=== PATIENT | female | born 1955 | race Caucasian/White ===

== ENCOUNTER 2017-08-10 10:54 | Day surgery (SDC) | payer MEDICARE, OTHER ==
[2017-08-09 10:29] LABS: APPEARANCE,URINE CLEAR; BILIRUBIN,URINE NEGATIVE (NEGATIVE); GLUCOSE, URINE NEGATIVE (NEGATIVE); KETONES,URINE NEGATIVE (NEGATIVE); LEUKOCYTE ESTERASE,URINE NEGATIVE (NEGATIVE); NITRITE,URINE NEGATIVE (NEGATIVE); PROTEIN,URINE NEGATIVE (NEGATIVE); URINE SPECIFIC GRAVITY 1.005; UROBILINOGEN,URINE NEGATIVE mg/dL (<2.0)
[2017-08-09 11:15] LABS: HEMATOCRIT 38.3 % (36.0-47.0); HEMOGLOBIN 12.7 g/dL (12.0-15.5); HGB HCT DIFFERENCE -0.2; MEAN CORPUSCULAR HEMOGLOBIN 27.2 pg (27.0-33.4); MEAN CORPUSCULAR HGB CONC 33.2 g/dL (32.0-36.0); MEAN CORPUSCULAR VOLUME 82 fl (80-97); RED BLOOD COUNT 4.67 10^6/uL (3.72-5.28); RED CELL DISTRIBUTION WIDTH 14.4 % (11.5-14.0); WHITE BLOOD COUNT 4.1 10^3/uL (4.0-10.5)
[2017-08-09 11:26] LABS: PROTHROMBIN TIME 11.9 SEC (11.4-15.4)
[2017-08-09 11:50] LABS: ANION GAP 15 (5-19); BLOOD UREA NITROGEN 16 mg/dL (7-20); CALCIUM 10.1 mg/dL (8.4-10.2); CARBON DIOXIDE 25 mmol/L (22-30); CHLORIDE 105 mmol/L (98-107); CREATININE RESULT 0.88 mg/dL (0.52-1.25); GLUCOSE 84 mg/dL (75-110); POTASSIUM 4.2 mmol/L (3.6-5.0); SODIUM 145.1 mmol/L (137-145)
--- NOTE | 2017-08-09 18:33 | EKG REPORT ---
SEVERITY:- NORMAL ECG - SINUS RHYTHM : Confirmed by: Lisa Grigsby 09-Aug-2017 18:32:29
[~2017-08-10 10:54] MED LIST: CEFAZOLIN SODIUM 1 GM in DEXTROSE 5%-WATER 50 ML IV PRN; LACTATED RINGERS 1000 ML IV PRN; LIDOCAINE 0.5% INJ-PF (5 MG/ML) 50 ML SDV SUBCUT PRN; RINGERS SOLUTION,LACTATED 1,000 ML IV PRN
[2017-08-10] MEDS ORDERED: LIDOCAINE 1% INJ-PF (10 MG/ML) 30 ML SDV ONE (11:07)
[2017-08-10] MEDS ORDERED: BUPIVACAINE HCL 0.25% /EPINEPHRINE INJ/PF 30 ML SDV ONE (11:08)
[2017-08-10] MEDS ORDERED: SODIUM BICARBONATE 8.4% INJ 50 MEQ/50 ML DISP.SYRIN ONE (11:11)
[2017-08-10] MEDS ORDERED: CEFAZOLIN 1 GM/D5W RTU 1 GM/50 ML RTUPB IV ONE (11:16)
[2017-08-10] MEDS ORDERED: LIDOCAINE 2% INJ-PF (20 MG/ML) 10 ML AMPUL ONE (12:23)
[2017-08-10] MEDS ORDERED: ONDANSETRON HCL INJ/PF 4 MG/2 ML SDV ONE (12:24)
[2017-08-10] MEDS ORDERED: MIDAZOLAM 2 MG/2 ML INJ ONE ×2 (12:24→13:14)
[2017-08-10] MEDS ORDERED: PROPOFOL INJ 200 MG/20 ML VIAL IV ONE (12:24)
[2017-08-10] MEDS ORDERED: KETAMINE HCL INJ 500 MG/10 ML VIAL ONE (12:24)
[2017-08-10] MEDS ORDERED: FENTANYL CITRATE INJ/PF 100 MCG/2 ML AMPUL ONE ×2 (12:24→13:50)
[2017-08-10] MEDS ORDERED: DIPHENHYDRAMINE HCL 50 MG/ML VIAL IV PRN (13:01)
[2017-08-10] MEDS ORDERED: MEPERIDINE HCL/PF INJ 25 MG/1 ML DISP.SYRIN IV PRN (13:01)
[2017-08-10] MEDS ORDERED: ONDANSETRON HCL INJ/PF 4 MG/2 ML SDV IV PRN (13:01)
[2017-08-10] MEDS ORDERED: FENTANYL CITRATE INJ/PF 100 MCG/2 ML AMPUL IV PRN ×3 (13:01)
[2017-08-10] MEDS ORDERED: PROMETHAZINE HCL INJ 25 MG/1 ML VIAL IV PRN ×2 (13:01)
[2017-08-10] MEDS ORDERED: MORPHINE SULFATE 10 MG/ML INJ IV PRN (13:01)
[2017-08-10] MEDS ORDERED: OXYCODONE-ACETAMINOPHEN 5-325 MG TABLET PO PRN ×2 (13:01)
--- NOTE | 2017-08-10 13:53 | OPERATIVE REPORT E ---
Operative Report NAME: RODY ZENDEJAS : 1955 AGE: 62Y DATE OF SURGERY: 08/10/2017 ROOM: PREOPERATIVE DIAGNOSIS: Nonfunctioning bladder stimulating residual electrodes. POSTOPERATIVE DIAGNOSIS: Nonfunctioning bladder stimulating residual electrodes. PROCEDURE: Attempted removal of residual electrodes under fluoroscopic guidance. SURGEON: MAC ALICIA M.D. [employer] TECHNICAL OFFICER: Dr. Pk Quintanilla ANESTHESIA: MAC. INDICATIONS: Improved access to MRI scanning. PROCEDURE NOTE: After obtaining informed consent and advising the patient of the risks and benefits, including serious neurological injury, bleeding and infection, aggravation of bladder function, paralysis, allergic reaction and , she was taken to the operating room and placed comfortably in the prone position. She was evaluated with fluoroscopy. The residual electrode was identified and the skin was marked accordingly. After prepping and draping with appropriate drying time using chlorhexidine, the skin was anesthetized over the selected region with 1% lidocaine with bicarb followed by 0.25% bupivacaine with epinephrine. Sharp and blunt dissection were performed down to the posterior sacral wall. With repetitive use of fluoroscopy the residual tail end of the lead extending out of the sacrum was identified. This was grasped with a hemostat and attempts were made to remove the electrodes. There was significant resistance. The tines of the electrode were delivered; however, none of the boutons that were deep to the posterior sacral plate. It should be noted that no residual wires were within the sheathing component, indicating that they had been stripped in the prior attempted removal. The decision was made at this point to not pursue any further surgical exploration and close the wound. Copious irrigation was utilized. Hemostasis was obtained successfully with electrocautery. The wound was then closed with several layers of 3-0 Polysorb followed by Dermabond tape and cement. Occlusive dressings were placed on this and the patient was taken to the PACU for further postoperative care and monitoring. DICTATING PHYSICIAN: MAC ALICIA M.D. [id number] PHY#: [id number] ID: [id number] JOB#: [id number] ACCT: [id number] cc:MAC ALICIA M.D. >
[2017-08-10] MEDS: OXYCODONE-ACETAMINOPHEN 5-325 MG TABLET PO PRN ×2 (14:30→14:35)
--- NOTE | 2017-08-10 15:22 | RADIOLOGY REPORT (SQ) ---
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 FLUOROSCOPY TIME: 1.1 minutes 7 digital images saved to PACS. TECHNIQUE: Intra-operative images acquired during surgical procedure to evaluate progress. NUMBER OF IMAGES: Cine fluoroscopic images. LIMITATIONS: None. FINDINGS: Intra procedural imaging and fluoro. IMPRESSION: Intra procedural imaging and fluoro COMMENT: Quality ID [id number]: Final reports for procedures using fluoroscopy that document radiation exp osure indices, or exposure time and number of fluorographic images (if radiation exposure indices are not available) Please consult full operative report of the attending physician for description of the procedure. TECHNICAL DOCUMENTATION: JOB ID: [id number] [employer]- All Rights Reserved
--- NOTE | 2017-08-10 15:22 | RADIOLOGY REPORT (SQ) ---
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 FLUOROSCOPY TIME: 1.1 minutes 7 digital images saved to PACS. TECHNIQUE: Intra-operative images acquired during surgical procedure to evaluate progress. NUMBER OF IMAGES: Cine fluoroscopic images. LIMITATIONS: None. FINDINGS: Intra procedural imaging and fluoro. IMPRESSION: Intra procedural imaging and fluoro COMMENT: Quality ID [id number]: Final reports for procedures using fluoroscopy that document radiation exp osure indices, or exposure time and number of fluorographic images (if radiation exposure indices are not available) Please consult full operative report of the attending physician for description of the procedure. TECHNICAL DOCUMENTATION: JOB ID: [id number] [employer]- All Rights Reserved
[2017-08-10 15:56] VITALS: BP 105/64
== END 2017-08-10 15:40 | disposition home or self-care (01) ==
LOC: OROUT 10:54
PROVIDERS: ATTEND Pain Medicine Interventional Pain Medicine
DX: T83.110A Breakdown (mechanical) of urinary electronic stimulator device, initial encounter (principal); Y83.8 Other surgical procedures as the cause of abnormal reaction of the patient, or of later complication, without mention of misadventure at the time of the procedure; Z46.6 Encounter for fitting and adjustment of urinary device; G89.4 Chronic pain syndrome; M25.552 Pain in left hip; F41.9 Anxiety disorder, unspecified; F32.9 Major depressive disorder, single episode, unspecified; E89.0 Postprocedural hypothyroidism; G43.909 Migraine, unspecified, not intractable, without status migrainosus; M41.9 Scoliosis, unspecified; Z79.891 Long term (current) use of opiate analgesic; Z79.899 Other long term (current) drug therapy; Z79.82 Long term (current) use of aspirin; Z87.891 Personal history of nicotine dependence; Z86.2 Personal history of diseases of the blood and blood-forming organs and certain disorders involving the immune mechanism
CPT/HCPCS: 53899; 93005; 36415; 85027; 85610; 85730; 80048; 81001; 72220; 93010; J2250; J3490 ×5; J0690; J3010; A9270; J2405; J2704; 860

== ENCOUNTER 2017-08-30 11:15 | Day surgery (SDC) | payer MEDICARE, OTHER ==
[~2017-08-30 11:15] MED LIST changes: -CEFAZOLIN SODIUM 1 GM in DEXTROSE 5%-WATER 50 ML IV PRN; -LACTATED RINGERS 1000 ML IV PRN; -LIDOCAINE 0.5% INJ-PF (5 MG/ML) 50 ML SDV SUBCUT PRN; +PROPOFOL INJ 200 MG/20 ML VIAL IV ONE; -RINGERS SOLUTION,LACTATED 1,000 ML IV PRN
[2017-08-30 13:13] VITALS: BP 115/56
--- NOTE | 2017-08-30 14:00 | Operative Report ---
Operative Report DATE OF SURGERY: 08/30/17 Operative Report: The risks, benefits and alternatives of the procedure including risks of bleeding, perforation requiring surgery are explained to the patient in detail and informed consent is obtained. Patient was taken back to the endoscopy suite and placed in the left, lateral decubital position. Timeout was called. Propofol medications administered. A rectal examination is done which did not reveal any masses, tears or fissures. An Olympus videoscope was inserted into the patient's rectum. The scope was then carefully advanced all the way to the cecum. The cecum was identified by the usual anatomical landmarks including the ileocecal valve as well as the appendiceal office. Photodocumentation is obtained. The scope was then sequentially pulled back via the various segments of the colon including the ascending colon, hepatic flexure, transverse colon, splenic flexure, descending colon and finding to the rectosigmoid portions of the colon. Retroflexion maneuvers performed. The risks benefits and alternatives of the procedure explained to the patient in detail and informed consent is obtained.A GIF Olympus video scope was inserted into the patient's mouth and hypopharynx, the esophagus is identified intubated and insufflated, the scope was then advanced through the esophagus stomach and duodenum, retroflexion maneuver is done the esophagus stomach and first and second portions of the duodenum examined PREOPERATIVE DIAGNOSIS: Iron deficiency anemia rule out possible GI bleeding. Known history of Sales's esophagus POSTOPERATIVE DIAGNOSIS: Small area of Sales's that was ablated in situ. Hiatal hernia is seen. Gastritis is noted. There is also duodenitis. Biopsies obtained to rule out for Helicobacter pylori. The Sales's is ablated. Right side colon Inflammation status post biopsy. Internal hemorrhoids OPERATION: Colonoscopy with biopsy. EGD with ablation. EGD with biopsy SURGEON: DEDRA CASSIDY ANESTHESIA: LMAC TISSUE REMOVED OR ALTERED: As described above. COMPLICATIONS: None. ESTIMATED BLOOD LOSS: None. INTRAOPERATIVE FINDINGS: As noted above. PROCEDURE: Patient tolerated procedure well. No immediate postprocedure complications are noted. Patient discharged in good condition. Discharge date 08/30/2017. Discharge diet: Regular. Discharge activity: Regular. 2-3 week follow-up to discuss findings. We will wait on biopsies. Patient is instructed to call the office or proceed to the emergency room should there be any further problems or questions.
== END 2017-08-30 13:10 | disposition home or self-care (01) ==
LOC: END 11:15
PROVIDERS: ATTEND Internal Medicine Gastroenterology
PROC: 0DB98ZX Excision of Duodenum, Via Natural or Artificial Opening Endoscopic, Diagnostic (ICD-10-PCS; principal; 2017-08-30 14:00)
PROC: 0DB68ZX Excision of Stomach, Via Natural or Artificial Opening Endoscopic, Diagnostic (ICD-10-PCS; 2017-08-30 14:00)
PROC: 0DBF8ZX Excision of Right Large Intestine, Via Natural or Artificial Opening Endoscopic, Diagnostic (ICD-10-PCS; 2017-08-30 14:00)
DX: K22.719 Barrett's esophagus with dysplasia, unspecified (principal); K64.8 Other hemorrhoids; K52.9 Noninfective gastroenteritis and colitis, unspecified; K29.80 Duodenitis without bleeding; K29.70 Gastritis, unspecified, without bleeding; D50.9 Iron deficiency anemia, unspecified; K44.9 Diaphragmatic hernia without obstruction or gangrene; K21.9 Gastro-esophageal reflux disease without esophagitis; E07.9 Disorder of thyroid, unspecified; Z79.899 Other long term (current) drug therapy; Z79.1 Long term (current) use of non-steroidal anti-inflammatories (NSAID); Z79.891 Long term (current) use of opiate analgesic; Z79.82 Long term (current) use of aspirin; Z88.8 Allergy status to other drugs, medicaments and biological substances; Z88.6 Allergy status to analgesic agent
CPT/HCPCS: 43270; 45380; 88342 ×2; 88305 ×2; J2704; 43239; 810

== ENCOUNTER → 2018-09-06 | Day surgery (SDC) | payer MEDICARE, OTHER ==
[~2018-09-06] MED LIST changes: +BUPIVACAINE HCL 0.5 % INJ/PF 30 ML SDV ONE; +LIDOCAINE 1% INJ-PF (10 MG/ML) 30 ML SDV ONE; +LIDOCAINE 2% INJ (20 MG/ML) 20 ML MDV ONE; +METHYLPREDNISOLONE ACETATE INJ 40 MG/1 ML ML ONE; -PROPOFOL INJ 200 MG/20 ML VIAL IV ONE
--- NOTE | 2018-09-06 22:16 | OPERATIVE REPORT E ---
Operative Report NAME: RODY ZENDEJAS : 1955 AGE: 63Y DATE OF SURGERY: 09/06/2018 ROOM: PREOPERATIVE DIAGNOSIS: Lumbar spondylosis, right lumbar spine. POSTOPERATIVE DIAGNOSIS: Lumbar spondylosis, right lumbar spine. OPERATION: Cold radiofrequency ablation at the right L4-L5 and sacral ala levels under fluoroscopic guidance. SURGEON: MAC ALICIA M.D. INDICATIONS: Positive response to prior blockade and femoral RF. COMPLICATIONS: None. PROCEDURE NOTE: After obtaining informed consent, advising the patient of the risks and benefits, including serious neurological injury, bleeding and infection, paralysis, aggravation of pain, allergic reaction, and she was taken the fluoroscopic procedure suite and placed comfortably in the prone position. She was evaluated under fluoroscopy and suitable entrance sites through the skin were identified above the right L4, L5 and sacral ala regions. After prepping with chlorhexidine and draping, local anesthesia with 1% lidocaine with bicarb was applied to each of the locations including subcutaneous and deeper tissues. Small incisions were made at each site to facilitate placement of the cold RF probe. The probes were then inserted under fluoroscopic guidance to be positioned at the junction of the superior articulating surface and the transverse processes of L4 and L5 and the sacral ala at the S1 level. Lateral views were taken to confirm satisfactory location, sensory and motor testing were then performed and were satisfactory. *------* was then instilled with 2 cc of 2% lidocaine. After awaiting approximately 60 seconds, RF ablation was performed for 2 minutes 45 seconds at 60 degrees. Upon completion of the lesion, each probe was further instilled with approximately 15 mg of Depo-Medrol and an additional 1 cc of 1% lidocaine. She tolerated this quite well. All the instrumentation was removed. The region was cleansed and sterile dressings were applied. She was then released for outpatient followup with instructions for wound care and clinic followup in 1 to 2 weeks. DICTATING PHYSICIAN: MAC ALICIA M.D. [id number] PHY#: [id number] ID: [id number] JOB#: [id number] ACCT: [id number] cc:MAC ALICIA M.D. >
== END ==
LOC: RAD 14:55
PROVIDERS: ATTEND Pain Medicine Interventional Pain Medicine
DX: M47.817 Spondylosis without myelopathy or radiculopathy, lumbosacral region (principal)
CPT/HCPCS: 64636; 64635; J3490 ×2; J1020